=== PATIENT | female | born 1950 | race Caucasian/White ===

== ENCOUNTER 2017-12-29 15:17 | Emergency (ER) | payer SELFPAY ==
[~2017-12-29] VITALS: Ht 170.2 cm; Wt 100.0 kg
[2017-12-29 15:21] VITALS: BP 157/69; PULSE 67; RESP 18; TEMP 98.4; O2SAT 98
== END 2017-12-29 17:07 | disposition left against medical advice (07) ==
LOC: NED 15:17
DX: Z03.89 Encounter for observation for other suspected diseases and conditions ruled out (principal)
CPT/HCPCS: 99281